=== PATIENT | female | born 1970 | race Caucasian/White ===

== ENCOUNTER 2021-01-21 11:55 | Inpatient (IN) | payer MEDICARE, MEDICAID, SELFPAY ==
[2021-01-21] VITALS (10 sets, daily range): BP systolic 91–151; BP diastolic 76–98; PULSE 90–133; RESP 16–30; O2SAT 97–99; BMI 16.2
--- NOTE | 2021-01-21 11:57 | ECG_ITS ---
[facility] Test Date: 2021-01-21 Pat Name: Tiny Jacome Department: Room: 150 Gender: Female Low Voltage Electrician: : 1970 Requested By: Rizwan Hook Order Number: [id number] Eyal MD: Yordan Zelaya M.D. Measurements Intervals [place] Rate: 93 P: 76 MA: 132 QRS: 66 QRSD: 80 T: 62 QT: 341 QTc: 425 Interpretive Statements SINUS RHYTHM WITH SINUS ARRHYTHMIA POSSIBLE LEFT ATRIAL ENLARGEMENT [-0.1mV P-WAVE IN V1/V2] SEPTAL MYOCARDIAL INFARCTION , OF INDETERMINATE AGE [40+ ms Q WAVE IN V1/V2] No previous ECG available for comparison Electronically Signed On 01-22-2021 7:35:17 SETUP OPERATOR by Yordan Zelaya M.D. [id number]
--- NOTE | 2021-01-21 11:57 | W.ED.PSYCHS ---
HPI - Psych General: Chief Complaint: Psychiatric Symptoms Stated Complaint: SI/ OVERDOSE Time Seen by Provider: 01/21/21 11:56 History of Present Illness: HPI Narrative: Ms. Jacome is a 50-year-old lady with various psychiatric diagnoses and substance abuse problems who presents the emergency department due to suicidal ideation with suicide attempt. She reports longstanding history of amphetamine and opioid abuse and was previously on Suboxone. She reports that her stole her Suboxone and she has been out of her psych meds for approximately 3 months. She last used heroin and methamphetamine on Sunday. Patient is currently having difficulty staying still. She otherwise denies significant changes to health. Intensity of symptoms is moderate to severe. She took 300 mg tablets of Seroquel. No other specific exacerbating or alleviating factors identified. Review of Systems General: Reports: 10 or more systems reviewed and unremarkable except in HPI and below Physical Exam Narrative: EXAM NARRATIVE: GENERAL/CONSTITUTIONAL -chronically ill-appearing. Patient has difficulty staying still Eyes - PERRL, no conjunctival injection ENMT - Atraumatic external nose and ears. Moist mucous membranes NECK - supple. trachea midline CARDIOVASCULAR -tachycardic rate and regular rhythm. Normal peripheral perfusion. RESPIRATORY - clear to auscultation bilaterally. No retractions or accessory muscle use. ABDOMEN/GI - Nontender/Nondistended. No tenderness to percussion or evidence of peritonitis MSK - Extremities without obvious deformity or tenderness to palpation SKIN - Warm, Dry NEURO - alert and appropriately oriented. strength and sensation intact. Moves all extremities equally. PSYCH - anxious. Patient has difficulty being still. Appears to have symptoms of either active amphetamine intoxication or more likely withdrawal. Course Vital Signs: Vital signs: Vital Signs Temperature 98.1 F 01/30/21 22:00 Pulse Rate 75 01/30/21 22:00 Respiratory Rate 18 01/30/21 22:00 Blood Pressure 112/68 01/30/21 22:00 Pulse Oximetry 99 01/30/21 22:00 MDM - Psych MDM Narrative: Medical decision making narrative: - Patient was seen and evaluated by me at bedside - Patient placed on cardiac monitors, IV access obtained - Initial evaluation notable for exam as above - given degree of patient's symptoms I ordered a benzodiazipine - Labs notable for no acute medical reason to explain symptoms, tox positive for amphetamines. - unfortunately, throughout ED course the patient required multiple additional doses and multiple medications. She was combative, not able to verbally deescalated, and attempted to hit staff. She lacked appropriate insight and presented a danger to her self and others. - She did require restraints and was evaluated during this time serially per protocol and restraints were discontinued when clinically appropriate - Discussed case with Dr Leigh of the psychiatry service. He ended up coming to see patient prior to admission. - Patient to be admitted to psychiatric unit. Medical Records: Attestation: I reviewed the patient's medical records. Lab Data: Attestation: I reviewed the patient's lab results. Labs: Lab Results 01/21/21 01/21/21 01/21/21 12:24 12:24 12:24 WBC 4.6 10^3/uL 10^3/ uL (4.0-10.0) RBC 3.52 10^6/uL L 10 ^6/uL (4.1-5.3) Hgb 10.6 g/dL L g/dL (11.5-15.3) Hct 33.2 % L % (37.0-47.0) MCV 94.3 fl fl (81-99) MCH 30.1 pg pg (28.0-34.0) MCHC 31.9 g/dL g/dL (30.0-36.0) RDW 12.7 % % (12.1-15.1) Plt Count 583 10^3/cmm H 10 ^3/cmm (130-400) MPV 8.6 fL fL (7.4-10.4) Neut % (Auto) 62.5 % % Lymph % (Auto) 25.0 % % [place] % (Auto) 5.2 % % Eos % (Auto) 5.6 % % Baso % (Auto) 1.3 % % Neut # (Auto) 2.90 10^3/uL 10^3 /uL (1.8-7.7) Lymph # (Auto) 1.2 10^3/uL 10^3/ uL (0.8-4.8) [place] # (Auto) 0.2 10^3/uL 10^3/ uL (0.2-0.9) Eos # (Auto) 0.3 10^3/uL 10^3/ uL (0.0-0.8) Baso # (Auto) 0.1 10^3/uL 10^3/ uL (0.0-0.1) Nucleated RBC % (a uto) 0 % % Nucleated RBCs # 0.0 /100WBC /100W BC Sodium 140 mmol/L mmol/L (136-145) Potassium 4.0 mmol/L mmol/L (3.5-5.1) Chloride 105 mmol/L mmol/L (98-107) Carbon Dioxide 25 mmol/L mmol/L (22-29) Anion Gap 14.0 (5-19) BUN 8 mg/dL mg/dL (6-20) Creatinine 0.6 mg/dL mg/dL (0.5-0.9) GFR Calculation 105.8 mL/min mL/m in (90-130) Glucose 131 mg/dL H mg/dL (65-115) Calculated Osmolal ity 290 mOsm/kg mOsm/ kg (285-295) Calcium 8.0 mg/dL L mg/dL (8.5-10.5) Total Bilirubin 0.2 mg/dL mg/dL (0.15-1.2) AST 12 U/L U/L (0-32) ALT 8 U/L U/L (0-33) Alkaline Phosphata se 104 IU/L IU/L (35-105) Creatine Kinase Total Protein 7.4 g/dL g/dL (6.6-8.7) Albumin 3.2 g/dL L g/dL (3.5-5.2) Globulin 4.2 g/dL g/dL (1.3-4.6) TSH 0.30 uIU/mL uIU/m L (0.27-4.20) HCG, Qual Negative (Negative) Salicylates < 0.3 mg/dL L mg/ dL (3-10) Urine Opiates Scre en Acetaminophen < 5.0 ug/mL L ug/ mL (10-30) Ur Barbiturates Sc reen Ur Phencyclidine S crn Ur Amphetamines Sc reen U Benzodiazepines Scrn Urine Cocaine Scre en U Marijuana (THC) Screen Ethyl Alcohol < 10 mg/dL mg/dL (0-10) 01/21/21 01/21/21 12:24 12:24 WBC RBC Hgb Hct MCV MCH MCHC RDW Plt Count MPV Neut % (Auto) Lymph % (Auto) [place] % (Auto) Eos % (Auto) Baso % (Auto) Neut # (Auto) Lymph # (Auto) [place] # (Auto) Eos # (Auto) Baso # (Auto) Nucleated RBC % (a uto) Nucleated RBCs # Sodium Potassium Chloride Carbon Dioxide Anion Gap BUN Creatinine GFR Calculation Glucose Calculated Osmolal ity Calcium Total Bilirubin AST ALT Alkaline Phosphata se Creatine Kinase 43 U/L U/L (26-192) Total Protein Albumin Globulin TSH HCG, Qual Salicylates Urine Opiates Scre en Negative ng/mL ng /mL (Negative) Acetaminophen Ur Barbiturates Sc reen Negative ng/mL ng /mL (Negative) Ur Phencyclidine S crn Negative ng/mL ng /mL (Negative) Ur Amphetamines Sc reen Positive ng/mL H ng/mL (Negative) U Benzodiazepines Scrn Negative ng/mL ng /mL (Negative) Urine Cocaine Scre en Negative ng/mL ng /mL (Negative) U Marijuana (THC) Screen Negative ng/mL ng /mL (Negative) Ethyl Alcohol EKG Data^: EKG 1: Attestation: I personally reviewed and interpreted this EKG as follows: EKG interpretation date: 01/21/21 EKG interpretation time: 21:03 Interpretation: Twelve-lead EKG shows a regular rhythm at a rate of 93. [place] interval 132. QRS duration 80. QTc 425. normal [place]. . Interpretation: sinus Rhythm. . Discharge Plan Discharge Patient Disposition: Admitted As Inpatient Admit Provider: Deangelo Leigh Clinical Impression: Suicidal ideation Condition: Stable Coding Level of Care Code ED Business Systems Lead for Sandra Xavier
[2021-01-21] MEDS: LORazepam 2 mg/mL INJ 1 mL 1 MG IVP ×2 (12:33→13:42)
[2021-01-21] MEDS: diphenhydrAMINE 50 mg/mL SDV 1mL 25 MG IVP (12:33)
[2021-01-21 12:39] LABS: Basophils # 0.1 10^3/uL (0.0-0.1); Basophils % 1.3 %; Eosinophils # 0.3 10^3/uL (0.0-0.8); Eosinophils % 5.6 %; Hematocrit 33.2 % (37.0-47.0); Hemoglobin 10.6 g/dL (11.5-15.3); Lymphocytes # 1.2 10^3/uL (0.8-4.8); Mean Corpuscular HGB Conc 31.9 g/dL (30.0-36.0); Mean Corpuscular Hemoglobin 30.1 pg (28.0-34.0); Mean Corpuscular Volume 94.3 fl (81-99); Mean Platelet Volume 8.6 fL (7.4-10.4); Monocytes # 0.2 10^3/uL (0.2-0.9); Monocytes % 5.2 %; Neutrophils % 62.5 %; Nucleated Red Blood Cells % 0 %; Platelet Count 583 10^3/cmm (130-400); Red Blood Count 3.52 10^6/uL (4.1-5.3); Red Cell Distribution Width 12.7 % (12.1-15.1); White Blood Count 4.6 10^3/uL (4.0-10.0)
[2021-01-21 12:43] LABS: HCG Qualitative Urine. Negative (Negative)
[2021-01-21 13:16] LABS: Alanine Aminotransferase 8 U/L (0-33); Albumin Level 3.2 g/dL (3.5-5.2); Alkaline Phosphatase 104 IU/L (35-105); Aspartate Amino Transferase 12 U/L (0-32); Blood Urea Nitrogen 8 mg/dL (6-20); Carbon Dioxide 25 mmol/L (22-29); Chloride 105 mmol/L (98-107); Creatinine Clr Calc Pharmacy 78.7171; Globulin 4.2 g/dL (1.3-4.6); Glomerular Filtration Rate 105.8 mL/min (90-130); Glucose 131 mg/dL (65-115); Osmolality Calculated 290 mOsm/kg (285-295); Sodium 140 mmol/L (136-145); Total Bilirubin 0.2 mg/dL (0.15-1.2); Total Protein 7.4 g/dL (6.6-8.7)
[2021-01-21 13:19] LABS: Acetaminophen < 5.0 ug/mL (10-30); Alcohol Level < 10 mg/dL (0-10); Salicylate < 0.3 mg/dL (3-10)
[2021-01-21 13:32] LABS: Amphetamines Screen Urine Positive (Negative); Barbiturates Screen Urine Negative (Negative); Benzodiazepines Screen Urine Negative (Negative); Cocaine Screen Urine Negative (Negative); Opiate Screen Urine Negative (Negative); PCP Screen Urine Negative (Negative); THC Screen Urine Negative (Negative)
[2021-01-21] MEDS: sodium chloride 0.9% 1,000 ML 999 ML IV (13:42)
[2021-01-21] MEDS: cloNIDine 0.1 mg Tablet PO (13:42)
[2021-01-21] MEDS: midazolam 1 mg/mL INJ 2 mL 2 MG IVP (14:44)
[2021-01-21] MEDS: OLANZapine 10 mg VIAL 5 MG IM (15:02)
[2021-01-21] MEDS: midazolam 1 mg/mL INJ 2 mL 5 MG IVP (15:32)
--- NOTE | 2021-01-21 17:54 | PC.NURSE ---
AT 1627 PT PLACED IN SOFT RESTRAINTS D/T CONTINUOUS ACTIVITY THAT POSES HARM TO SELF AND STAFF
[2021-01-21] MEDS: ziprasidone 20 mg/mL SDV IM (18:18)
[2021-01-21] MEDS: LORazepam 2 mg/mL INJ 1 mL IVP (18:18)
[2021-01-21 21:33] LABS: Creatine Phosphokinase 43 U/L (26-192)
--- NOTE | 2021-01-22 00:40 | PC.ADMIT ---
[address] Admission Note: The patient,Tiny Jacome,50 y/o, was given written information regarding hospital policies, unit procedures and contact persons. Patient's smoking status: . Vital Signs - 8 hr 01/21/21 17:30 01/21/21 17:45 01/21/21 18:00 Pulse Rate 95 97 100 Respiratory Rate 16 Blood Pressure Pulse Oximetry 98 98 99 01/21/21 18:15 01/21/21 19:18 01/21/21 19:56 Pulse Rate 90 112 H 115 H Respiratory Rate Blood Pressure 151/90 144/98 91/76 Pulse Oximetry 98 98 97 01/21/21 21:50 Pulse Rate 115 H Respiratory Rate Blood Pressure 91/76 Pulse Oximetry 97 Patient arrived from ER via w/c with staff. Patient slumped in chair and painfully responsive. Patient placed in bed and changed into cotton scrubs. Skin assessment performed, unremarkable other than random bruising to arms, legs and left hip area. Patient non-verbal and was asleep just after scrubs were changed. Unable to perform complete assessment due to mental status. Will attempt after patient is alert. Will continue to monitor and follow plan of care.
--- NOTE | 2021-01-22 01:57 | PC.NURSE ---
Pt woke up and came out of her room to the Nurse's desk. Patient asked where she was at. SANTOSH Connelly explained to pt where she was and why. Patient then returned to bed. Will continue to monitor.
[2021-01-22] MEDS: CLONazepam 0.5 mg Tablet PO (04:38)
[2021-01-22 06:00] VITALS: RESP 17
[2021-01-22] MEDS: OLANZapine 5 mg ODT PO ×3 (08:58→20:48)
[2021-01-22] MEDS: hyDROXYzine 25 mg Capsule 50 MG PO ×2 (08:58→13:21)
--- NOTE | 2021-01-22 09:29 | P.NPUHP_ITS ---
Providers/Chief Complaint Admitting Physician: Deangelo Leigh MD Chief Complaint: SI/ OVERDOSE HPI NPU History of Present Illness Tiny Jacome is a 50 year old female who presented to the emergency [facility] with the following report: Chief Complaint: Psychiatric Symptoms Stated Complaint: SI/ OVERDOSE Time Seen by Provider: 01/21/21 11:56 History of Present Illness: HPI Narrative: Ms. Jacome is a 50-year-old lady with various psychiatric diagnoses and substance abuse problems who presents the emergency department due to suicidal ideation with suicide attempt. She reports longstanding history of amphetamine and opioid abuse and was previously on Suboxone. She reports that her stole her Suboxone and she has been out of her psych meds for approximately 3 months. She last used heroin and methamphetamine on Sunday. Patient is currently having difficulty staying still. She otherwise denies significant changes to health. Intensity of symptoms is moderate to severe. She took 300 mg tablets of Seroquel. No other specific exacerbating or alleviating factors identified. She was admitted to the neuropsychiatric unit for definitive treatment of those issues. She presents as a fairly poor historian given the significant amount of medication she was given in the emergency room to likely counteract the significant methamphetamine intoxication. She presents now fairly lethargic and having vomiting and various withdrawal symptoms possibly secondary to overall. We discussed the fact that we need to confirm her clinics plan with her Suboxone given this report that she does not have any training and that she just recently filled the prescription. We agreed that we would give her 8/2 mg of Suboxone sublingually twice daily until we speak to them on Sunday and then if they are going to give her medication when she discharges will increase back to 3 times a day. If they will not we will plan for a taper as we would not discharge her with any medication. She was unable to really participate in getting historical data. She did endorse significant addiction history cigarettes, marijuana at times, amphetamines, opiates etc. She does report past inpatient psychiatric stays and some history of drug and alcohol treatment but could not give any clarity to these issues. She does reportedly have a and referred to him multiple of them because of him during the day. Other psychosocial elements are unclear but she does reportedly have connections in the [place] area. We agreed that on Sunday we would work to get collateral information. She was very upset because she wanted her Klonopin restarted but per records thus far we can only did not find that she had content filled in August. We identified that we would have as needed medications available for some of her withdrawal symptoms. Her UDS was only positive for amphetamines would not expect to be positive for Suboxone given it is not part of the panel. Meds NPU Home Medications Medication Instructions Recorded Confirmed Last Taken Type buprenorphine-naloxone [Suboxone] 1 film BUCCAL TID 01/21/21 01/21/21 Unknown History clonazepam [Klonopin] 0.5 mg PO BID PRN MDD see pharmacy 01/21/21 01/21/21 Unknown History comment naloxone [Narcan] 4 mg INTRANASAL Q2M PRN 01/21/21 01/21/21 Unknown History quetiapine [Seroquel] 100 mg PO BEDTIME 01/21/21 01/21/21 Unknown History Allergies Allergy/AdvReac Type Severity Reaction Status Date / Time haloperidol [From Haldol] Allergy Unknown Unknown Verified 01/21/21 13:15 metoclopramide [From Reglan] Allergy Unknown Unknown Verified 01/21/21 13:15 prochlorperazine Allergy Unknown Unknown Verified 01/21/21 13:15 [From Compazine] Mental Status Exam MSE Comments: This is a thin/cachectic looking white female in hospital scrubs, disheveled with limited eye contact. Significant psychomotor retardation followed by some agitation. Mostly uncooperative with exam in mild to moderate distress. Speech was limited but at times increased rate and volume. Mood described as anxious affect congruent. Thought process organized. Thought content: Patient denied suicidal or homicidal ideation, there are no delusions reported noted, she endorsed auditory and visual hallucinations. Concentration were limited and memory was unreliable but none were formally tested. She is alert and oriented x3. Insight and judgment impaired, impulse control impaired. Vitals/I&O/Wt Last Vital Signs Pulse 115 H 01/21/21 23: Resp 17 01/22/21 06:00 BP 91/76 01/21/21 23:21 Pulse Ox 97 01/21/21 23:21 01/21/21 01/22/21 01/22/21 22:59 06:59 14:59 Intake Total 1000 / 1000 Balance 1000 / 1000 Weight last 48 hrs Weight 44.452 kg Data NPU : 01/21/21 12:24 01/21/21 12:24 A&P Assessment and plan (1) Suicidal ideation: Status: Acute (2) Methamphetamine dependence: Status: Acute (3) Opiate withdrawal: Status: Acute (4) Opiate dependence: Status: Acute (5) Anxiety: Status: Acute (6) Psychosis: Status: Acute Additional A&P Information This is a 50-year-old white female with a long history of addiction, anxiety and psychosis who presents in active addiction with intoxication and withdrawal with reports of suicidality. 1. Continue current medication. We will give 8/2 mg of Suboxone while awaiting communication with outpatient clinic. 2. Continue every 15 minute checks for safety. 3. Encourage individual, group and milieu therapies. 4. Encourage sober living treatment after discharge at the highest level of care to which he is willing to commit. Involuntary Hold Information 96 Hour Hold: 96 Hour Involuntary Admission: Yes 96 Hour Hold Ending Date: 01/27/21 96 Hour Hold Ending Time: 16:30 Attestations NPU Medical Necessity Statement*: Inpatient hospitalization is medically necessary and the clinically appropriate intervention at this time. We will monitor medication to make changes as indicated. Likely length of stay 3 to 5 days. Coding Level of Care Code Acute Medical Asst for Sandra Fwd Diagnoses Suicidal ideation R45.851 Methamphetamine dependence F15.20 Opiate withdrawal F11.23 Opiate dependence F11.20 Anxiety F41.9 Psychosis F29
--- NOTE | 2021-01-22 13:19 | PC.NURSE ---
AT 12:45 pt was given PRN Zydis for uncontrollable agitation and anxiety. Pt took medication without complication.
[2021-01-22 14:00] VITALS: BP 143/93; PULSE 84; RESP 16; TEMP 37.1; O2SAT 99
[2021-01-22] MEDS: buprenorphine-naloxone 4-1 mg Film 2 EACH SUBLINGUAL ×2 (15:02→18:19)
[2021-01-22 20:43] VITALS: BP 114/70; PULSE 102; RESP 15; TEMP 37.1; O2SAT 97
[2021-01-22] MEDS: trazodone 50 mg Tablet PO (20:48)
[2021-01-22] MEDS: acetaminophen 325 mg Tablet 650 MG PO (20:48)
[2021-01-23] MEDS: hyDROXYzine 25 mg Capsule 50 MG PO ×3 (05:41→22:24)
[2021-01-23 06:00] VITALS: RESP 16; BMI 16.2
--- NOTE | 2021-01-23 06:02 | PC.NURSE ---
Patient yelling, and kicking mattress in room, screaming I need my meds. He doesn't know what he's doing to me. He can't cut my Subs from 4 to two. I'm withdrawing and I can't take it. I need my psych meds. I need them straightened out. I need my Benzos, my sleeping meds and my Lyrica. Asked patient if she would like a shot to help deal with her agitation and she said yes. Medicated with PRN Ativan and Benadryl.
[2021-01-23] MEDS: diphenhydrAMINE 50 mg/mL SDV 1mL IM (06:05)
[2021-01-23] MEDS: LORazepam 2 mg/mL INJ 1 mL IM (06:05)
[2021-01-23] MEDS: buprenorphine-naloxone 4-1 mg Film 2 EACH SUBLINGUAL ×2 (08:03→17:09)
[2021-01-23] MEDS: OLANZapine 5 mg ODT PO ×3 (08:03→22:24)
--- NOTE | 2021-01-23 12:38 | W.PM.NPUPNS ---
Subjective NPU Subjective: Interval history: Patient was essentially uncooperative today screaming and yelling that she be given benzodiazepines and that her Suboxone dose be increased to outpatient dose. We once again discussed our policy about dispensing Suboxone and that we need her outpatient team's acknowledgment that they will continuing the medication and giving her prescription at discharge for us to dispense inpatient. She mostly screamed all day kicking her feet demanding to be transferred to [place] Mental Status Exam MSE Comments: This is a thin/cachectic looking white female in hospital scrubs, disheveled with limited eye contact. Significant psychomotor agitation. Uncooperative with exam in extreme distress. Speech was limited but at times increased rate and volume. Mood described as anxious affect congruent. Thought process organized. Thought content: Patient denied suicidal or homicidal ideation, there are no delusions reported noted, she endorsed auditory and visual hallucinations. Concentration were limited and memory was unreliable but none were formally tested. She is alert and oriented x3. Insight and judgment impaired, impulse control impaired. Vitals/I&O/Wt Last Vital Signs Temp 98.7 F 01/22/21 20:43 Pulse 102 H 01/22/21 20:43 Resp 16 01/23/21 06:00 BP 114/70 01/22/21 20:43 Pulse Ox 97 01/22/21 20:43 Weight last 48 hrs Weight 44.452 kg Data NPU : 01/21/21 12:24 01/21/21 12:24 A&P Additional A&P Information (1) Suicidal ideation: (2) Methamphetamine dependence: (3) Opiate withdrawal: (4) Opiate dependence: (5) Anxiety: (6) Psychosis: Additional A&P Information This is a 50-year-old white female with a long history of addiction, anxiety and psychosis who presents in active addiction with intoxication and withdrawal with reports of suicidality. 1. Continue current medication. We will give 8/2 mg of Suboxone while awaiting communication with outpatient clinic. 2. Continue every 15 minute checks for safety. 3. Encourage individual, group and milieu therapies. 4. Encourage sober living treatment after discharge at the highest level of care to which he is willing to commit. Involuntary Hold Information 96 Hour Hold: 96 Hour Involuntary Admission: Yes 96 Hour Hold Ending Date: 01/27/21 96 Hour Hold Ending Time: 16:30 Attestations NPU Medical Necessity Statement*: Inpatient hospitalization is medically necessary and the clinically appropriate intervention at this time. We will monitor medication to make changes as indicated. Likely length of stay 3 to 5 days. Coding Level of Care Code Acute Combat Systems Operator for Sandra Xavier
[2021-01-23 14:00] VITALS: RESP 18
--- NOTE | 2021-01-23 14:32 | PC.NURSE ---
Pt agitated and screaming. Pt has been offered PRN medications and refused until now. Pt requesting benzos only. Pt kicking the wall and slamming her legs on her bed. Pt took 50 mg Vistaril and 5 mg Zyprexa without complication. Pt on the phone screaming that no one will help her or feed her. Pt remains agitated and unable to redirect
--- NOTE | 2021-01-23 17:38 | PC.NURSE ---
REFUSED VITALS WILL CONTINUE TO MONITOR.
[2021-01-23 20:27] VITALS: RESP 21
[2021-01-23] MEDS: trazodone 50 mg Tablet PO (22:24)
--- NOTE | 2021-01-23 23:53 | NUR.SHIFT ---
Demanding, loud, inappropriate language and actions.
[2021-01-24] MEDS: OLANZapine 5 mg ODT PO ×4 (04:24→22:23)
[2021-01-24] MEDS: hyDROXYzine 25 mg Capsule 50 MG PO ×2 (04:24→17:25)
--- NOTE | 2021-01-24 04:24 | PC.NURSE ---
pt yelling from bed. Vistaril 50mg po and zyprexa 5mg SL given for anxiety.
[2021-01-24 06:00] VITALS: RESP 15
[2021-01-24] MEDS: buprenorphine-naloxone 4-1 mg Film 2 EACH SUBLINGUAL ×2 (08:06→17:25)
--- NOTE | 2021-01-24 09:32 | PC.OT ---
OT EVALUATION ORDERS RECEIVED. HOLD PER NURSING SECONDARY TO AGGRESSION.
[2021-01-24] MEDS: OLANZapine 10 mg VIAL IM (10:35)
--- NOTE | 2021-01-24 10:46 | PC.NURSE ---
At 10:30, Pt began screaming and hitting amado. Pt began threatening peers and staff. Pt agreed to to take a shot of medication for anxiety and agitation. Zyprexa 10mg IM administered in left glut without complication.
--- NOTE | 2021-01-24 12:52 | NPU.GN ---
[facility] Group Topic:Gaurav Sawyer / Discussion General Mood of Group: Lea did not attend or participate in group she wanted to sleep. She was also yelling alot today. Tiny is not mentally or emotionally stable at this time.
[2021-01-24 14:00] VITALS: BP 132/86; PULSE 117; RESP 17; TEMP 37.1; O2SAT 96
--- NOTE | 2021-01-24 15:52 | W.PM.NPUPNS ---
Subjective NPU Subjective: Interval history: Patient presents today actually engaging in a conversation after she received a as needed of Zyprexa IM today. She continued to discuss the things she is in screaming about the past 2 days including possible transfer to [facility] in [place], increasing her Suboxone to 8/2 mg 3 times daily and needing something for her anxiety and her voices. We discussed the treatment plan and are continue attempts to reach her Suboxone provider and then will continue to address these issues as more information is available. Mental Status Exam MSE Comments: This is a thin/cachectic looking white female in hospital scrubs, disheveled multicolored hair with improved eye contact. Significant psychomotor agitation. More cooperative with exam in less distress after the as needed medication. Speech was more spontaneous with less times of increased rate and volume. Mood described as anxious, affect congruent. Thought process organized. Thought content: Patient denied suicidal or homicidal ideation, there are no delusions reported noted, she endorsed auditory and visual hallucinations. Concentration were limited and memory was unreliable but none were formally tested. She is alert and oriented x3. Insight and judgment impaired, impulse control impaired. Vitals/I&O/Wt Last Vital Signs Temp 98.7 F 01/24/21 14:00 Pulse 117 H 01/24/21 14:00 Resp 17 01/24/21 14:00 BP 132/86 01/24/21 14:00 Pulse Ox 96 01/24/21 14:00 Data NPU : 01/21/21 12:24 01/21/21 12:24 A&P Additional A&P Information (1) Suicidal ideation: (2) Methamphetamine dependence: (3) Opiate withdrawal: (4) Opiate dependence: (5) Anxiety: (6) Psychosis: Additional A&P Information This is a 50-year-old white female with a long history of addiction, anxiety and psychosis who presents in active addiction with intoxication and withdrawal with reports of suicidality. 1. Continue current medication. We will give 8/2 mg of Suboxone while awaiting communication with outpatient clinic. 2. Continue every 15 minute checks for safety. 3. Encourage individual, group and milieu therapies. 4. Encourage sober living treatment after discharge at the highest level of care to which he is willing to commit. Involuntary Hold Information 96 Hour Hold: 96 Hour Involuntary Admission: Yes 96 Hour Hold Ending Date: 01/27/21 96 Hour Hold Ending Time: 16:30 Attestations NPU Medical Necessity Statement*: Inpatient hospitalization is medically necessary and the clinically appropriate intervention at this time. We will monitor medication to make changes as indicated. Likely length of stay 2-4 days. Coding Level of Care Code Acute Terminal System Operator for Sandra Xavier
[2021-01-24] MEDS: quetiapine 25 mg Tablet 50 MG PO (16:27)
[2021-01-24] MEDS: nicotine 2 mg Gum BUCCAL ×2 (17:04→20:21)
[2021-01-24 21:35] VITALS: RESP 15
[2021-01-24] MEDS: ziprasidone hcl 20 mg Capsule PO (22:23)
--- NOTE | 2021-01-24 22:25 | PC.NURSE ---
pt requesting sleep and anxiety med. trazodone 50mg po for sleep and zyprexa zydis 5mg SL given for anxiety.
--- NOTE | 2021-01-24 23:00 | PC.NURSE ---
pt resting quietly with both eyes closed.
[2021-01-25] MEDS: hyDROXYzine 25 mg Capsule 50 MG PO ×3 (05:09→16:52)
--- NOTE | 2021-01-25 05:11 | PC.NURSE ---
pt requested anxiety med, Vistaril 50mg po given.
[2021-01-25] MEDS: nicotine 2 mg Gum BUCCAL ×4 (06:10→18:41)
[2021-01-25 06:23] VITALS: BP 95/60; PULSE 115; RESP 16; O2SAT 99
--- NOTE | 2021-01-25 07:59 | W.PM.NPUPNS ---
Subjective NPU Subjective: Interval history: Patient resents today continuing to be more verbal regularly and occasionally being seen up ambulating. She continues to focus on the medications specifically requesting that the Suboxone will be increased back to 24 mg daily in divided doses. We were able to get a hold of her Suboxone program which does appear to be planning on maintaining her in the program however that effectively actually described her that we get a sense of whether the 3 times daily 8/2 mg sublingually we continued or not. She continues to request benzodiazepines which we have denied. We agreed we will have nutrition come by and work with her to make recommendations to improve her nutritional status. Mental Status Exam MSE Comments: This is a thin/cachectic looking white female in hospital scrubs, disheveled multicolored hair with improved eye contact. Significant psychomotor agitation which is improving slightly. More cooperative with exam in less constant distress. Speech was more spontaneous with less times of increased rate and volume. Mood described as anxious, affect congruent. Thought process organized. Thought content: Patient denied suicidal or homicidal ideation, there are no delusions reported or noted, she endorsed auditory and visual hallucinations. Concentration were limited and memory was unreliable but none were formally tested. She is alert and oriented x3. Insight and judgment impaired, impulse control impaired. Vitals/I&O/Wt Last Vital Signs Temp 98.7 F 01/24/21 14:00 Pulse 115 H 01/25/21 06:23 Resp 16 01/25/21 06:23 BP 95/60 01/25/21 06:23 Pulse Ox 99 01/25/21 06:23 Data NPU : 01/21/21 12:24 01/21/21 12:24 A&P Additional A&P Information (1) Suicidal ideation: (2) Methamphetamine dependence: (3) Opiate withdrawal: (4) Opiate dependence: (5) Anxiety: (6) Psychosis: Additional A&P Information This is a 50-year-old white female with a long history of addiction, anxiety and psychosis who presents in active addiction with intoxication and withdrawal with reports of suicidality. 1. Continue current medication. We will give 8/2 mg of Suboxone while awaiting communication with outpatient clinic. 2. Continue every 15 minute checks for safety. 3. Encourage individual, group and milieu therapies. 4. Encourage sober living treatment after discharge at the highest level of care to which he is willing to commit. 5. Appreciate coating machine operator helper/dietitian consult will await recommendations and follow as indicated. Involuntary Hold Information 96 Hour Hold: 96 Hour Involuntary Admission: Yes 96 Hour Hold Ending Date: 01/27/21 96 Hour Hold Ending Time: 16:30 Attestations NPU Medical Necessity Statement*: Inpatient hospitalization is medically necessary and the clinically appropriate intervention at this time. We will monitor medication to make changes as indicated. Likely length of stay 1-3 days. Coding Level of Care Code Acute Nursing Care Partner for Sandra Xavier
[2021-01-25] MEDS: buprenorphine-naloxone 4-1 mg Film 2 EACH SUBLINGUAL ×2 (08:34→17:32)
[2021-01-25] MEDS: OLANZapine 5 mg ODT PO ×2 (10:39→20:19)
[2021-01-25] MEDS: OLANZapine 10 mg VIAL IM (12:49)
--- NOTE | 2021-01-25 12:50 | PC.NURSE ---
Pt agitated and screaming. Pt laying in bed twisting and turning. Pt states she feels wrong. Pt agreed to take an injection of zyprexa for agitation. Zyprexa 10mg IM given in right glut without complication.
--- NOTE | 2021-01-25 13:14 | NPU.GN ---
[facility] Topic: Gaurav Sawyer General Mood of Group: Júnior did not attend group today As she was sleeping.
[2021-01-25] MEDS: quetiapine 25 mg Tablet 50 MG PO ×2 (13:40→21:47)
[2021-01-25 14:00] VITALS: RESP 18
[2021-01-25 19:49] VITALS: BP 130/79; PULSE 113; RESP 18; O2SAT 95
--- NOTE | 2021-01-25 20:44 | PC.NURSE ---
pt requested anxiety med, zyprexa zydis 5mg SL given.
[2021-01-26 06:00] VITALS: BP 118/67; PULSE 62; RESP 17; O2SAT 98
[2021-01-26] MEDS: nicotine 2 mg Gum BUCCAL ×4 (08:07→17:10)
[2021-01-26] MEDS: buprenorphine-naloxone 4-1 mg Film 2 EACH SUBLINGUAL ×2 (08:37→17:10)
[2021-01-26] MEDS: OLANZapine 5 mg ODT PO ×2 (10:49→16:33)
[2021-01-26] MEDS: hyDROXYzine 25 mg Capsule 50 MG PO ×2 (10:49→17:31)
--- NOTE | 2021-01-26 10:51 | PC.NURSE ---
prn Administered 5mg Zyprexa Zydis, 50mg Vistaril, 2mg Ryan gum, pt c/o of anxiety. Will continue to monitor.
--- NOTE | 2021-01-26 11:15 | NPU.GN ---
[facility] Topic: Checkers General Mood of Group: Tiny did not attend group today she was sleeping.
[2021-01-26] MEDS: acetaminophen 325 mg Tablet 650 MG PO (13:20)
[2021-01-26] MEDS: ziprasidone hcl 20 mg Capsule PO (13:20)
[2021-01-26] MEDS: quetiapine 25 mg Tablet 50 MG PO ×2 (13:22→20:30)
--- NOTE | 2021-01-26 13:58 | P.NPUPN_ITS ---
Subjective NPU Subjective: Interval history: Patient presents today with a paresthesias of right and conversational. We continue to explain awaiting her Suboxone team's authorization through increase her to 8/2 mg 3 times a day. With an understanding that if they do not choose to treat her mood after discontinuing medication with a taper. We also discussed her being on a 96-hour hold that en ds tomorrow and she agreed that she would sign into the hospital. Otherwise she continues to report working with the treatment team for appropriate follow-up options. Continue to focus on medications as primary solutions and we continue to discuss the critical role that her discontinuing her methamphetamine and other drug use is in her feeling better/less anxious. Mental Status Exam MSE Comments: This is a thin/cachectic looking white female in hospital scrubs, disheveled multicolored hair with improved eye contact. Significant psychomotor agitation which is improving slightly. More cooperative with exam in less constant distress. Speech was more spontaneous with less times of increased rate and volume. Mood described as anxious, affect congruent. Thought process organized. Thought content: Patient denied suicidal or homicidal ideation, there are no delusions reported or noted, she endorsed auditory and visual hallucinations. Concentration were limited and memory was unreliable but none were formally tested. She is alert and oriented x3. Insight and judgment limited, impulse control limited. Vitals/I&O/Wt Last Vital Signs Temp 98.7 F 01/24/21 14:00 Pulse 62 01/26/21 06:00 Resp 17 01/26/21 06:00 BP 118/67 01/26/21 06:00 Pulse Ox 98 01/26/21 06:00 Data NPU : 01/21/21 12:24 01/21/21 12:24 A&P Additional A&P Information (1) Suicidal ideation: (2) Methamphetamine dependence: (3) Opiate withdrawal: (4) Opiate dependence: (5) Anxiety: (6) Psychosis: Additional A&P Information This is a 50-year-old white female with a long history of addiction, anxiety and psychosis who presents in active addiction with intoxication and withdrawal with reports of suicidality. 1. Continue current medication. We will give 8/2 mg of Suboxone while awaiting communication with outpatient clinic. 2. Continue every 15 minute checks for safety. 3. Encourage individual, group and milieu therapies. 4. Encourage sober living treatment after discharge at the highest level of care to which he is willing to commit. 5. Appreciate foreign trade teacher/dietitian consult will await recommendations and follow as indicated. 6. Patient should be offered paperwork for voluntary treatment tomorrow. Involuntary Hold Information 96 Hour Hold: 96 Hour Involuntary Admission: Yes 96 Hour Hold Ending Date: 01/27/21 96 Hour Hold Ending Time: 16:30 Attestations NPU Medical Necessity Statement*: Inpatient hospitalization is medically necessary and the clinically appropriate intervention at this time. We will monitor medication to make changes as indicated. Likely length of stay 1-3 days. Coding Level of Care Code Acute Economic Development Specialist for Sandra Xavier
[2021-01-26 14:00] VITALS: BP 129/84; PULSE 108; RESP 16; O2SAT 99
[2021-01-26 19:37] VITALS: BP 129/84; PULSE 108; RESP 16; O2SAT 99
[2021-01-27] MEDS: OLANZapine 5 mg ODT PO ×3 (00:54→13:34)
[2021-01-27] MEDS: hyDROXYzine 25 mg Capsule 50 MG PO ×3 (00:55→11:37)
[2021-01-27 06:00] VITALS: BP 130/78; PULSE 84; RESP 17; O2SAT 98
[2021-01-27] MEDS: nicotine 2 mg Gum BUCCAL ×5 (06:41→19:18)
[2021-01-27] MEDS: ondansetron 4 MG Tablet PO (08:33)
[2021-01-27] MEDS: buprenorphine-naloxone 4-1 mg Film 2 EACH SUBLINGUAL ×3 (08:33→20:30)
[2021-01-27] MEDS: ziprasidone hcl 20 mg Capsule PO (08:33)
[2021-01-27] MEDS: quetiapine 25 mg Tablet 50 MG PO ×2 (11:37→15:45)
[2021-01-27 13:31] VITALS: BP 109/76; PULSE 102; PULSE 98; RESP 17; TEMP 36.3; O2SAT 98
--- NOTE | 2021-01-27 13:31 | ECG_ITS ---
[facility] Test Date: 2021-01-27 Pat Name: Tiny Jacome Department: Room: 150 Gender: Female Customs Examiner: : 1970 Requested By: Colt Colvin Order Number: [id number] Eyal MD: MAGY BOYD Measurements Intervals [place] Rate: 98 P: 82 WV: 138 QRS: 74 QRSD: 81 T: 72 QT: 340 QTc: 434 Interpretive Statements SINUS RHYTHM MODERATE VOLTAGE CRITERIA FOR LVH, CONSIDER NORMAL VARIANT [MEETS CRITERIA IN ONE OF: R(aVL), S(V1), R(V5), R(V5/V6)+S(V1)] Compared to ECG 01/21/2021 20:56:18 Sinus arrhythmia no longer present Myocardial infarct finding no longer present Electronically Signed On 01-27-2021 19:56:06 SOCIAL RESEARCH ASSISTANT by MAGY BOYD [id number]
[2021-01-27] MEDS: acetaminophen 325 mg Tablet 650 MG PO (13:34)
[2021-01-27 14:30] LABS: Troponin T (5th) Once 6 ng/L (0-10)
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
[2021-01-27 20:26] VITALS: RESP 15
[2021-01-27] MEDS: quetiapine 100 mg Tablet 200 MG PO (20:31)
[2021-01-27] MEDS: quetiapine 300 mg Tablet PO (20:31)
[2021-01-28 06:00] VITALS: BP 112/78; PULSE 68; RESP 15; O2SAT 96
[2021-01-28] MEDS: buprenorphine-naloxone 4-1 mg Film 2 EACH SUBLINGUAL ×3 (06:55→20:33)
[2021-01-28] MEDS: quetiapine 25 mg Tablet 50 MG PO ×2 (07:00→13:37)
[2021-01-28] MEDS: nicotine 2 mg Gum BUCCAL ×3 (09:24→20:31)
[2021-01-28] MEDS: acetaminophen 325 mg Tablet 650 MG PO ×2 (09:24→20:31)
--- NOTE | 2021-01-28 10:33 | P.NPUPN_ITS ---
Subjective NPU Subjective: Interval history: She inadvertently received Seroquel 500 mg last night. She said that it still took her 3 hours to go to sleep and she woke up every 45 minutes. Her restless leg syndrome comes and goes. It has been bad lately. That is part of the reason that she has difficulty going to sleep. She asked for some Requip twice a day and some Restoril at bedtime to help with sleep better. She agreed to try clonazepam 1 mg twice a day. She has been on that before and that worked well for her restless leg syndrome. Her anxiety continues to be very high. She says that increasing the Suboxone to 3 times a day has been very helpful. Mental Status Exam MSE Comments: This is a thin/cachectic looking white female in hospital scrubs, disheveled multicolored hair with good eye contact. Significant psychomotor agitation. cooperative with exam in moderate distress. Speech was more spontaneous with less times of increased rate and volume. Mood described as anxious, affect congruent. Thought process organized. Thought content: Patient denied suicidal or homicidal ideation, there are no delusions reported or noted, she endorsed auditory and visual hallucinations. Concentration were limited and memory was unreliable but none were formally tested. She is alert and oriented x3. Insight and judgment limited, impulse control limited. Cognition: Patient Appearance: Disheveled/Poor Hygiene Level of Consciousness: Awake and Alert Patient Cognition Impaired: No Ability to Follow Directions: Poor Patient Orientation (long list): Person, Place, Time, Name, Age, Birthday, Day of Month, Day of Week and Year Comprehension Ability: Unable to Comprehend Hallucination Type: None Thought Process: Circumstantial and Disorganized Affect: Affect Description: Appropriate Behavior: Patient Behavior: Appropriate Speech Pattern: Appropriate Vitals/I&O/Wt Last Vital Signs Temp 97.4 F L 01/27/21 13:31 Pulse 68 01/28/21 06:00 Resp 15 01/28/21 06:00 BP 112/78 01/28/21 06:00 Pulse Ox 96 01/28/21 06:00 Data NPU : 01/21/21 12:24 01/21/21 12:24 A&P Assessment and plan (1) Suicidal ideation: Status: Acute (2) Methamphetamine dependence: Status: Acute (3) Opiate withdrawal: Status: Acute (4) Opiate dependence: Status: Acute (5) Anxiety: Status: Acute (6) Psychosis: Status: Acute Additional A&P Information (1) Suicidal ideation: (2) Methamphetamine dependence: (3) Opiate withdrawal: (4) Opiate dependence: (5) Anxiety: (6) Psychosis: Additional A&P Information This is a 50-year-old white female with a long history of addiction, anxiety and psychosis who presents in active addiction with intoxication and withdrawal with reports of suicidality. 1. Continue current medication. Continue 8/2 mg of Suboxone TID. Seroquel to 50 mg twice a day and 400 mg at bedtime. Add clonazepam 1 mg twice a day. 2. Continue every 15 minute checks for safety. 3. Encourage individual, group and milieu therapies. 4. Encourage sober living treatment after discharge at the highest level of care to which he is willing to commit. 5. Appreciate utility worker woolen mill/dietitian consult will await recommendations and follow as indicated. 6. Patient should be offered paperwork for voluntary treatment tomorrow. Involuntary Hold Information 96 Hour Hold: 96 Hour Involuntary Admission: Yes 96 Hour Hold Ending Date: 01/27/21 96 Hour Hold Ending Time: 16:30 Attestations NPU Medical Necessity Statement*: Inpatient hospitalization is medically necessary and the clinically appropriate intervention at this time. We will initiate medications and make changes as indicated. Coding Level of Care Code Acute Product Examiner for Sandra Xavier Diagnoses Suicidal ideation R45.851 Methamphetamine dependence F15.20 Opiate withdrawal F11.23 Opiate dependence F11.20 Anxiety F41.9 Psychosis F29
[2021-01-28] MEDS: CLONazepam 1 mg Tablet PO ×2 (12:13→20:31)
[2021-01-28] MEDS: hyDROXYzine 25 mg Capsule 50 MG PO ×2 (13:37→20:31)
[2021-01-28 14:00] VITALS: BP 96/63; PULSE 86; RESP 16; TEMP 37.1; O2SAT 98
[2021-01-28] MEDS: quetiapine 100 mg Tablet 400 MG PO (20:31)
[2021-01-28 20:44] VITALS: RESP 15
[2021-01-29 06:00] VITALS: RESP 16
[2021-01-29] MEDS: CLONazepam 1 mg Tablet PO ×2 (08:17→20:07)
[2021-01-29] MEDS: quetiapine 25 mg Tablet 50 MG PO (08:18)
[2021-01-29] MEDS: nicotine 21 mg Patch 1 PATCH TRANSDERMA (08:18)
[2021-01-29] MEDS: buprenorphine-naloxone 4-1 mg Film 2 EACH SUBLINGUAL ×3 (08:21→20:07)
--- NOTE | 2021-01-29 09:20 | W.PM.NPUPNS ---
Subjective NPU Subjective: Interval history: She says that the clonazepam 1 mg twice a day has been very helpful for her anxiety and also her restless leg syndrome. It lasted for about 5 hours and then the restless leg syndrome comes back mildly. It still took about 2 hours to get the sleep last night and she woke up for 5 times. She said that she went to the nurses station twice to ask for a snack. She said that when she got back in bed the restless leg syndrome was there mildly but then went away and she was able to go back to sleep without much difficulty. She said that she has been on many medications. She was educated that the serotonin antidepressants were the best thing to take for anxiety and PTSD. She said that she was on high doses of Zoloft a long time ago, just when it first came out, but she does not remember the dose. She said that she would not take Prozac because either helps or it makes people crazy. She thinks she was on Lexapro and does not really remember anything about that. She does not think that the dose was increased. She agreed to give that a try. She also agreed to increase the Seroquel to 600 mg. Mental Status Exam MSE Comments: This is a thin/cachectic looking white female in hospital scrubs, disheveled multicolored hair with good eye contact. Significant psychomotor agitation. cooperative with exam in moderate distress. Speech was more spontaneous with less times of increased rate and volume. Mood described as anxious, affect congruent. Thought process organized. Thought content: Patient denied suicidal or homicidal ideation, there are no delusions reported or noted, she endorsed auditory and visual hallucinations. Concentration were limited and memory was unreliable but none were formally tested. She is alert and oriented x3. Insight and judgment limited, impulse control limited. Cognition: Patient Appearance: Disheveled/Poor Hygiene Level of Consciousness: Awake and Alert Patient Cognition Impaired: No Ability to Follow Directions: Poor Patient Orientation (long list): Person, Place, Time, Name, Age, Birthday, Day of Month, Day of Week and Year Comprehension Ability: Unable to Comprehend Hallucination Type: None Delusion Description: Not Present Thought Process: Circumstantial and Disorganized Affect: Affect Description: Appropriate Behavior: Patient Behavior: Appropriate Speech Pattern: Appropriate and Clear Vitals/I&O/Wt Last Vital Signs Temp 98.8 F 01/28/21 14:00 Pulse 86 12/17/21 14:00 Resp 16 01/29/21 06:00 BP 96/63 01/28/21 14:00 Pulse Ox 98 01/28/21 14:00 Data NPU : 01/21/21 12:24 01/21/21 12:24 A&P Assessment and plan (1) Suicidal ideation: Status: Acute (2) Methamphetamine dependence: Status: Acute (3) Opiate withdrawal: Status: Acute (4) Opiate dependence: Status: Acute (5) Anxiety: Status: Acute (6) Psychosis: Status: Acute Additional A&P Information (1) Suicidal ideation: (2) Methamphetamine dependence: (3) Opiate withdrawal: (4) Opiate dependence: (5) Anxiety: (6) Psychosis: Additional A&P Information This is a 50-year-old white female with a long history of addiction, anxiety and psychosis who presents in active addiction with intoxication and withdrawal with reports of suicidality. 1. Continue current medication. Continue 8/2 mg of Suboxone TID. Increasae Seroquel 600 mg at bedtime. clonazepam 1 mg twice a day. 2. Continue every 15 minute checks for safety. 3. Encourage individual, group and milieu therapies. 4. Encourage sober living treatment after discharge at the highest level of care to which he is willing to commit. 5. Appreciate psychiatric therapist/dietitian consult will await recommendations and follow as indicated. 6. Patient should be offered paperwork for voluntary treatment tomorrow. Involuntary Hold Information 96 Hour Hold: 96 Hour Involuntary Admission: Yes 96 Hour Hold Ending Time: 16:30 Attestations NPU Medical Necessity Statement*: Inpatient hospitalization is medically necessary and the clinically appropriate intervention at this time. We will initiate medications and make changes as indicated. Coding Level of Care Code Acute Metal Fabricator Helper for Sandra Xavier Diagnoses Suicidal ideation R45.851 Methamphetamine dependence F15.20 Opiate withdrawal F11.23 Opiate dependence F11.20 Anxiety F41.9 Psychosis F29
[2021-01-29] MEDS: escitalopram 10 mg Tablet PO (13:00)
[2021-01-29 14:00] VITALS: BP 126/77; PULSE 99; RESP 20; TEMP 36.6; O2SAT 99
[2021-01-29] MEDS: hyDROXYzine 25 mg Capsule 50 MG PO (18:00)
--- NOTE | 2021-01-29 18:03 | PC.NURSE ---
patient complaining of restless legs. vistaril 50 mg given PO. will continue to monitor.
[2021-01-29] MEDS: OLANZapine 5 mg ODT PO (20:08)
[2021-01-29] MEDS: quetiapine 300 mg Tablet 600 MG PO (20:08)
[2021-01-29 20:35] VITALS: BP 122/79; PULSE 87; RESP 16; O2SAT 96
[2021-01-30] MEDS: buprenorphine-naloxone 4-1 mg Film 2 EACH SUBLINGUAL ×3 (05:50→19:19)
[2021-01-30 06:00] VITALS: BP 122/79; PULSE 87; RESP 16; TEMP 36.6; O2SAT 96; BMI 16.2
--- NOTE | 2021-01-30 07:36 | P.NPUPN_ITS ---
Subjective NPU Subjective: Interval history: She says that the clonazepam 1 mg twice a day has been very helpful for her anxiety and also her restless leg syndrome. She says that his restless legs started getting bad in the afternoon until she takes her sleep medication at bedtime. It lasted for about 5 hours and then the restless leg syndrome comes back mildly. She says that she slept very well last night with the Seroquel 600 mg and clonazepam 1 mg. Her restless leg did not bother her at night. Mental Status Exam MSE Comments: This is a thin/cachectic looking white female in hospital scrub s, disheveled multicolored hair with good eye contact. Significant psychomotor agitation. cooperative with exam in moderate distress. Speech was more spontaneous with less times of increased rate and volume. Mood described as anxious, affect congruent. Thought process organized. Thought content: Patient denied suicidal or homicidal ideation, there are no delusions reported or noted, she endorsed auditory and visual hallucinations. Concentration were limited and memory was unreliable but none were formally tested. She is alert and oriented x3. Insight and judgment limited, impulse control limited. Cognition: Patient Appearance: Disheveled/Poor Hygiene Level of Consciousness: Awake and Alert Patient Cognition Impaired: No Ability to Follow Directions: Poor Patient Orientation (long list): Person, Place, Time, Name, Age, Birthday, Day of Month, Day of Week and Year Comprehension Ability: Unable to Comprehend Hallucination Type: None Delusion Description: Not Present Thought Process: Circumstantial and Disorganized Behavior: Patient Behavior: Appropriate Speech Pattern: Clear Vitals/I&O/Wt Last Vital Signs Temp 97.8 F 01/30/21 06:00 Pulse 87 01/30/21 06:00 Resp 16 01/30/21 06:00 BP 122/79 01/30/21 06:00 Pulse Ox 96 01/30/21 06:00 Weight last 48 hrs Weight 44.452 kg Data NPU : 01/21/21 12:24 01/21/21 12:24 A&P Assessment and plan (1) Suicidal ideation: Status: Acute (2) Methamphetamine dependence: Status: Acute (3) Opiate withdrawal: Status: Acute (4) Opiate dependence: Status: Acute (5) Anxiety: Status: Acute (6) Psychosis: Status: Acute Additional A&P Information (1) Suicidal ideation: (2) Methamphetamine dependence: (3) Opiate withdrawal: (4) Opiate dependence: (5) Anxiety: (6) Psychosis: Additional A&P Information This is a 50-year-old white female with a long history of addiction, anxiety and psychosis who presents in active addiction with intoxication and withdrawal with reports of suicidality. 1. Continue current medication. Continue 8/2 mg of Suboxone TID. Seroquel 600 mg at bedtime. Increase clonazepam 1 mg twice a day and 0.5 mg at 1300. Lexapro 10 mg every morning 2. Continue every 15 minute checks for safety. 3. Encourage individual, group and milieu therapies. 4. Encourage sober living treatment after discharge at the highest level of care to which he is willing to commit. 5. Appreciate lighting specialist/dietitian consult will await recommendations and follow as indicated. 6. Patient should be offered paperwork for voluntary treatment tomorrow. Involuntary Hold Information 96 Hour Hold: 96 Hour Involuntary Admission: Yes 96 Hour Hold Ending Time: 16:30 Attestations NPU Medical Necessity Statement*: Inpatient hospitalization is medically necessary and the clinically appropriate intervention at this time. We will initiate me dications and make changes as indicated. Coding Level of Care Code Acute Precision Farming Specialist for Sandra Xavier Diagnoses Suicidal ideation R45.851 Methamphetamine dependence F15.20 Opiate withdrawal F11.23 Opiate dependence F11.20 Anxiety F41.9 Psychosis F29
[2021-01-30] MEDS: CLONazepam 1 mg Tablet PO ×2 (09:12→22:22)
[2021-01-30] MEDS: escitalopram 10 mg Tablet PO (09:12)
[2021-01-30] MEDS: nicotine 2 mg Gum BUCCAL ×3 (09:12→19:19)
[2021-01-30] MEDS: CLONazepam 0.5 mg Tablet PO (12:58)
[2021-01-30 13:56] VITALS: BP 96/61; PULSE 91; RESP 16; TEMP 36.3; O2SAT 99
[2021-01-30 22:00] VITALS: BP 112/68; PULSE 75; RESP 18; TEMP 36.7; O2SAT 99
[2021-01-30] MEDS: quetiapine 300 mg Tablet 600 MG PO (22:22)
[2021-01-31] MEDS: buprenorphine-naloxone 4-1 mg Film 2 EACH SUBLINGUAL ×3 (05:51→21:14)
[2021-01-31 06:00] VITALS: BP 92/41; PULSE 78; RESP 15; O2SAT 99
[2021-01-31] MEDS: CLONazepam 1 mg Tablet PO ×2 (08:56→21:14)
[2021-01-31] MEDS: nicotine 2 mg Gum BUCCAL ×4 (08:57→19:30)
[2021-01-31] MEDS: escitalopram 10 mg Tablet PO (08:57)
--- NOTE | 2021-01-31 10:02 | W.PM.NPUPNS ---
Subjective NPU Subjective: Interval history: She says that she slept fairly well last night. She had several bad dreams like she usually does. She says even in the day she will have bad dreams and be screaming and the nursing staff will need to come in and check on her. Her anxiety and restless leg syndrome are significantly better with the clonazepam. She still has a lot of anxiety. She has been on the Lexapro 10 mg daily for 3 days. Will increase to 20 mg tomorrow. I was hoping to add some Vivactil for her nightmares but that is nonformulary. She said that she has been on prazosin before but it did not work. Mental Status Exam MSE Comments: This is a thin/cachectic looking white female in hospital scrubs, disheveled multicolored hair with good eye contact. Significant psychomotor agitation. cooperative with exam in moderate distress. Speech was more spontaneous with less times of increased rate and volume. Mood described as anxious, affect congruent. Thought process organized. Thought content: Patient denied suicidal or homicidal ideation, there are no delusions reported or noted, she endorsed auditory and visual hallucinations. Concentration were limited and memory was unreliable but none were formally tested. She is alert and oriented x3. Insight and judgment limited, impulse control limited. Cognition: Patient Appearance: Disheveled/Poor Hygiene Level of Consciousness: Awake and Alert Patient Cognition Impaired: No Ability to Follow Directions: Poor Patient Orientation (long list): Person, Place, Time, Name, Age, Birthday, Day of Month, Day of Week and Year Comprehension Ability: Unable to Comprehend Hallucination Type: None Delusion Description: Not Present Thought Process: Circumstantial and Disorganized Affect: Affect Description: Appropriate Behavior: Patient Behavior: Appropriate Speech Pattern: Appropriate Vitals/I&O/Wt Last Vital Signs Temp 98.1 F 01/30/21 22:00 Pulse 78 01/31/21 06:00 Resp 15 01/31/21 06:00 BP 92/41 01/31/21 06:00 Pulse Ox 99 01/31/21 06:00 Weight last 48 hrs Weight 44.452 kg Data NPU : 01/21/21 12:24 01/21/21 12:24 A&P Assessment and plan (1) Suicidal ideation: Status: Acute (2) Methamphetamine dependence: Status: Acute (3) Opiate withdrawal: Status: Acute (4) Opiate dependence: Status: Acute (5) Anxiety: Status: Acute (6) Psychosis: Status: Acute Additional A&P Information (1) Suicidal ideation: (2) Methamphetamine dependence: (3) Opiate withdrawal: (4) Opiate dependence: (5) Anxiety: (6) Psychosis: Additional A&P Information This is a 50-year-old white female with a long history of addiction, anxiety and psychosis who presents in active addiction with intoxication and withdrawal with reports of suicidality. 1. Continue current medication. Continue 8/2 mg of Suboxone TID. Seroquel 600 mg at bedtime. clonazepam 1 mg twice a day and 0.5 mg at 1300. Increase Lexapro 20 mg every morning 2. Continue every 15 minute checks for safety. 3. Encourage individual, group and milieu therapies. 4. Encourage sober living treatment after discharge at the highest level of care to which he is willing to commit. 5. Appreciate district service manager/dietitian consult will await recommendations and follow as indicated. 6. Patient has signed in voluntarily. Involuntary Hold Information 96 Hour Hold: 96 Hour Involuntary Admission: Yes 96 Hour Hold Ending Time: 16:30 Attestations NPU Medical Necessity Statement*: Inpatient hospitalization is medically necessary and the clinically appropriate intervention at this time. We will initiate medications and make changes as indicated. Coding Level of Care Code Acute Shipping Room Helper for Sandra Xavier Diagnoses Suicidal ideation R45.851 Methamphetamine dependence F15.20 Opiate withdrawal F11.23 Opiate dependence F11.20 Anxiety F41.9 Psychosis F29
--- NOTE | 2021-01-31 10:48 | NPU.GN ---
[facility] Topic:Depression/ Anxiety Jes[place] General Mood of Group: Tiny did not attend group today as she wanted to sleep.
[2021-01-31] MEDS: CLONazepam 0.5 mg Tablet PO (12:18)
[2021-01-31 14:00] VITALS: BP 106/67; PULSE 66; RESP 17; TEMP 36.7; O2SAT 97
[2021-01-31] MEDS: quetiapine 300 mg Tablet 600 MG PO (21:14)
[2021-01-31 22:00] VITALS: BP 97/63; PULSE 82; RESP 16; TEMP 37.1; O2SAT 99
[2021-02-01] MEDS: buprenorphine-naloxone 4-1 mg Film 2 EACH SUBLINGUAL ×3 (05:51→19:32)
[2021-02-01 06:00] VITALS: BP 103/68; PULSE 96; RESP 15; O2SAT 98
[2021-02-01] MEDS: acetaminophen 325 mg Tablet 650 MG PO (06:02)
[2021-02-01] MEDS: nicotine 2 mg Gum BUCCAL ×6 (06:03→17:52)
[2021-02-01] MEDS: CLONazepam 1 mg Tablet PO ×2 (09:07→21:25)
[2021-02-01] MEDS: escitalopram 10 mg Tablet 20 MG PO (09:07)
--- NOTE | 2021-02-01 11:14 | NPU.GN ---
[facility] Topic:Maureen Word Search General Mood of Group: Júnior did attend group and participated. Júnior does not seem mentally stable yet and kept wandering in and out of the group. Hygiene was ok.
--- NOTE | 2021-02-01 12:38 | P.NPUPN_ITS ---
Subjective NPU Subjective: Interval history: She says that she was told by the social work coordinator that they cannot find an RCF that will take her before [place]. That has her very anxious and upset. She wants to go somewhere so she can be around family. Says that she thinks there is a women's retirement but she can go to. He asked about the Vivactil that I told her about yesterday. I did not start it because it was nonformulary. She said that she would like to try it. She is very anxious during the day. We talked about moving the Seroquel to some in the daytime but she does not want to take less during the night. Mental Status Exam MSE Comments: This is a thin/cachectic looking white female in hospital scrubs, disheveled multicolored hair with good eye contact. Significant psychomotor agitation. cooperative with exam in moderate distress. Speech was more spontaneous with less times of increased rate and volume. Mood described as anxious, affect congruent. Thought process organized. Thought content: Patient denied suicidal or homicidal ideation, there are no delusions reported o r noted, she endorsed auditory and visual hallucinations. Concentration were limited and memory was unreliable but none were formally tested. She is alert and oriented x3. Insight and judgment limited, impulse control limited. Cognition: Patient Appearance: Disheveled/Poor Hygiene Level of Consciousness: Awake and Alert Patient Cognition Impaired: No Ability to Follow Directions: Poor Patient Orientation (long list): Person, Place, Time, Name, Age, Birthday, Day of Month, Day of Week and Year Comprehension Ability: Unable to Comprehend Hallucination Type: None Delusion Description: Not Present Thought Process: Circumstantial and Disorganized Affect: Affect Description: Appropriate and Calm Behavior: Patient Behavior: Appropriate and Cooperative Speech Pattern: Appropriate and Clear Vitals/I&O/Wt Last Vital Signs Temp 98.7 F 01/31/21 22:00 Pulse 96 02/01/21 06:00 Resp 15 02/01/21 06:00 BP 103/68 02/01/21 06:00 Pulse Ox 98 02/01/21 06:00 Data NPU : 01/21/21 12:24 01/21/21 12:24 A&P Assessment and plan (1) Suicidal ideation: Status: Acute (2) Methamphetamine dependence: Status: Acute (3) Opiate withdrawal: Status: Acute (4) Opiate dependence: Status: Acute (5) Anxiety: Status: Acute (6) Psychosis: Status: Acute Additional A&P Information (1) Suicidal ideation: (2) Methamphetamine dependence: (3) Opiate withdrawal: (4) Opiate dependence: (5) Anxiety: (6) Psychosis: Additional A&P Information This is a 50-year-old white female with a long history of addiction, anxiety and psychosis who presents in active addiction with intoxication and withdrawal with reports of suicidality. 1. Continue current medication. Continue 8/2 mg of Suboxone TID. Seroquel 600 mg at bedtime. clonazepam 1 mg twice a day and 0.5 mg at 1300. Lexapro 20 mg every morning. Vyvactyl 10 mg QHS 2. Continue every 15 minute checks for safety. 3. Encourage individual, group and milieu therapies. 4. Encourage sober living treatment after discharge at the highest level of care to which he is willing to commit. 5. Appreciate building custodial supervisor/dietitian consult will await recommendations and follow as indicated. 6. Patient has signed in voluntarily. Involuntary Hold Information 96 Hour Hold: 96 Hour Involuntary Admission: Yes 96 Hour Hold Ending Time: 16:30 Attestations NPU Medical Necessity Statement*: Inpatient hospitalization is medically necessary and the clinically appropriate intervention at this time. We will initiate medications and make changes as indicated. Coding Level of Care Code Acute Harness Worker for Sandra Xavier Diagnoses Suicidal ideation R45.851 Methamphetamine dependence F15.20 Opiate withdrawal F11.23 Opiate dependence F11.20 Anxiety F41.9 Psychosis F29
[2021-02-01] MEDS: CLONazepam 0.5 mg Tablet PO (13:12)
[2021-02-01 13:39] VITALS: BP 108/69; PULSE 98; RESP 20; TEMP 36.6; O2SAT 94
[2021-02-01] MEDS: hyDROXYzine 25 mg Capsule 50 MG PO (18:21)
[2021-02-01] MEDS: OLANZapine 5 mg ODT PO (18:21)
[2021-02-01 20:03] VITALS: RESP 18
[2021-02-01] MEDS: quetiapine 300 mg Tablet 600 MG PO (21:26)
[2021-02-02] MEDS: buprenorphine-naloxone 4-1 mg Film 2 EACH SUBLINGUAL ×3 (05:42→18:53)
[2021-02-02 06:00] VITALS: RESP 16
[2021-02-02] MEDS: escitalopram 10 mg Tablet 20 MG PO (09:48)
[2021-02-02] MEDS: CLONazepam 1 mg Tablet PO ×2 (09:49→21:06)
[2021-02-02] MEDS: nicotine 2 mg Gum BUCCAL ×2 (10:06→12:35)
--- NOTE | 2021-02-02 10:37 | NPU.GN ---
[facility] Topic:Crisis Plan, Triggers, Coping Mechanisms. General Mood of Group: Tiny did not attend group today. Tiny was sleeping.
[2021-02-02] MEDS: CLONazepam 0.5 mg Tablet PO (12:10)
--- NOTE | 2021-02-02 12:21 | W.PM.NPUPNS ---
Subjective NPU Subjective: Interval history: She continues to have a lot of anxiety. She is very worried about where she will go. She did take the protriptyline for the first time last night and she says that she did not have any nightmares or dreams at all. She was happy about that. We discussed lithium yesterday and she said that she locked up when she took it previously. She says it could have been something else that she was taking. She was agreeable to trying it again. She continues to have a lot of anxiety. Mental Status Exam MSE Comments: This is a thin/cachectic looking white female in hospital scrubs, disheveled multicolored hair with good eye contact. Significant psychomotor agitation. When I observed her from outside of the room her legs were both moving at 12:15. cooperative with exam in moderate distress. Speech was more spontaneous with less times of increased rate and volume. Mood described as anxious, affect congruent. Thought process organized. Thought content: Patient denied suicidal or homicidal ideation, there are no delusions reported or noted, she endorsed auditory and visual hallucinations. Concentration were limited and memory was unreliable but none were formally tested. She is alert and oriented x3. Insight and judgment limited, impulse control limited. Cognition: Patient Appearance: Disheveled/Poor Hygiene Level of Consciousness: Awake and Alert Patient Cognition Impaired: No Ability to Follow Directions: Poor Patient Orientation (long list): Person, Place, Time, Name, Age, Birthday, Day of Month, Day of Week and Year Comprehension Ability: Unable to Comprehend Hallucination Type: None Delusion Description: Not Present Thought Process: Circumstantial and Disorganized Affect: Affect Description: Appropriate Behavior: Patient Behavior: Appropriate Speech Pattern: Appropriate Vitals/I&O/Wt Last Vital Signs Temp 98 F 02/01/21 13:39 Pulse 98 02/01/21 13:39 Resp 16 02/02/21 06:00 BP 108/69 02/01/21 13:39 Pulse Ox 94 02/01/21 13:39 Data NPU : 01/21/21 12:24 01/21/21 12:24 A&P Assessment and plan (1) Suicidal ideation: Status: Acute (2) Methamphetamine dependence: Status: Acute (3) Opiate withdrawal: Status: Acute (4) Opiate dependence: Status: Acute (5) Anxiety: Status: Acute (6) Psychosis: Status: Acute Additional A&P Information (1) Suicidal ideation: (2) Methamphetamine dependence: (3) Opiate withdrawal: (4) Opiate dependence: (5) Anxiety: (6) Psychosis: Additional A&P Information This is a 50-year-old white female with a long history of addiction, anxiety and psychosis who presents in active addiction with intoxication and withdrawal with reports of suicidality. 1. Continue current medication. Continue 8/2 mg of Suboxone TID. Seroquel 600 mg at bedtime. clonazepam 1 mg twice a day and 0.5 mg at 1300. Lexapro 20 mg every morning. Vyvactyl 10 mg QHS. We will add lithium 300 mg twice a day. 2. Continue every 15 minute checks for safety. 3. Encourage individual, group and milieu therapies. 4. Encourage sober living treatment after discharge at the highest level of care to which he is willing to commit. 5. Appreciate insights analyst/dietitian consult will await recommendations and follow as indicated. 6. Patient has signed in voluntarily. Involuntary Hold Information 96 Hour Hold: 96 Hour Involuntary Admission: Yes 96 Hour Hold Ending Time: 16:30 Attestations NPU Medical Necessity Statement*: Inpatient hospitalization is medically necessary and the clinically appropriate intervention at this time. We will initiate medications and make changes as indicated. Coding Level of Care Code Acute Produce Field Merchandiser for Sandra Xavier Diagnoses Suicidal ideation R45.851 Methamphetamine dependence F15.20 Opiate withdrawal F11.23 Opiate dependence F11.20 Anxiety F41.9 Psychosis F29
[2021-02-02 14:00] VITALS: BP 100/52; PULSE 76; RESP 18; TEMP 36.6; O2SAT 99
[2021-02-02] MEDS: lithium carbonate 300 mg Capsule PO (18:53)
[2021-02-02 20:17] VITALS: RESP 16
[2021-02-02] MEDS: quetiapine 300 mg Tablet 600 MG PO (21:06)
[2021-02-03 06:00] VITALS: RESP 17
[2021-02-03] MEDS: buprenorphine-naloxone 4-1 mg Film 2 EACH SUBLINGUAL ×3 (06:09→20:32)
[2021-02-03] MEDS: lithium carbonate 300 mg Capsule PO ×2 (09:15→20:23)
[2021-02-03] MEDS: CLONazepam 1 mg Tablet PO ×2 (09:15→20:23)
[2021-02-03] MEDS: escitalopram 10 mg Tablet 20 MG PO (09:15)
[2021-02-03] MEDS: nicotine 2 mg Gum BUCCAL ×4 (09:15→20:22)
--- NOTE | 2021-02-03 12:55 | NPU.GN ---
[facility] Topic:Maureen Activities General Mood of Group Tiny did not attend or participate in group today she was sleeping.
--- NOTE | 2021-02-03 13:17 | P.NPUPN_ITS ---
Subjective NPU Subjective: Interval history: He needs to be very anxious and complains of waking up through the night. She said that she had 2 nightmares last night which is her normal. She thinks that the lithium is making her shaky and more anxious.. She is only had 2 doses. She wants to leave and go to a women's correction. But the social workers feel that if she goes to a woman's correction like that she will get kicked out fairly quickly. She reluctantly agreed to continue with a trial of lithium. Mental Status Exam MSE Comments: This is a thin/cachectic looking white female in hospital scr ubs, disheveled multicolored hair with good eye contact. Significant psychomotor agitation. cooperative with exam in moderate distress. Speech was more spontaneous with less times of increased rate and volume. Mood described as anxious, affect congruent. Thought process organized. Thought content: Patient denied suicidal or homicidal ideation, there are no delusions reported or noted, she endorsed auditory and visual hallucinations. Concentration were limited and memory was unreliable but none were formally tested. She is alert and oriented x3. Insight and judgment limited, impulse control limited. Cognition: Patient Appearance: Disheveled/Poor Hygiene Level of Consciousness: Awake and Alert Patient Cognition Impaired: No Ability to Follow Directions: Poor Patient Orientation (long list): Person, Place, Time, Name, Age, Birthday, Day of Month, Day of Week and Year Comprehension Ability: Unable to Comprehend Hallucination Type: Visual Delusion Description: Not Present Thought Process: Appropriate Affect: Affect Description: Calm Behavior: Patient Behavior: Cooperative Speech Pattern: Appropriate and Clear Vitals/I&O/Wt Last Vital Signs Temp 98 F 02/02/21 14:00 Pulse 76 02/02/21 14:00 Resp 17 02/03/21 06:00 BP 100/52 02/02/21 14:00 Pulse Ox 99 02/02/21 14:00 Data NPU : 01/21/21 12:24 01/21/21 12:24 A&P Assessment and plan (1) Suicidal ideation: Status: Acute (2) Methamphetamine dependence: Status: Acute (3) Opiate withdrawal: Status: Acute (4) Opiate dependence: Status: Acute (5) Anxiety: Status: Acute (6) Psychosis: Status: Acute Additional A&P Information (1) Suicidal ideation: (2) Methamphetamine dependence: (3) Opiate withdrawal: (4) Opiate dependence: (5) Anxiety: (6) Psychosis: Additional A&P Information This is a 50-year-old white female with a long history of addiction, anxiety and psychosis who presents in active addiction with intoxication and withdrawal with reports of suicidality. 1. Continue current medication. Continue 8/2 mg of Suboxone TID. Seroquel 600 mg at bedtime. clonazepam 1 mg twice a day and 0.5 mg at 1300. Lexapro 20 mg every morning. Vyvactyl 10 mg QHS. Increase lithium 300 mg 3 times a day tomorrow if she tolerates it. 2. Continue every 15 minute checks for safety. 3. Encourage individual, group and milieu therapies. 4. Encourage sober living treatment after discharge at the highest level of care to which he is willing to commit. 5. Appreciate care tech/dietitian consult will await recommendations and follow as indicated. 6. Patient has signed in voluntarily. Involuntary Hold Information 96 Hour Hold: 96 Hour Involuntary Admission: Yes 96 Hour Hold Ending Time: 16:30 Attestations NPU Medical Necessity Statement*: Inpatient hospitalization is medically necessary and the clinically appropriate intervention at this time. We will initiate medications and make changes as indicated. Coding Level of Care Code Acute Insurance Healthcare Representative for Sandra Xavier Diagnoses Suicidal ideation R45.851 Methamphetamine dependence F15.20 Opiate withdrawal F11.23 Opiate dependence F11.20 Anxiety F41.9 Psychosis F29
[2021-02-03 14:00] VITALS: BP 103/67; PULSE 92; RESP 18; TEMP 36.4; O2SAT 98
[2021-02-03] MEDS: CLONazepam 0.5 mg Tablet PO (14:06)
[2021-02-03] MEDS: acetaminophen 325 mg Tablet 650 MG PO (20:22)
[2021-02-03] MEDS: quetiapine 300 mg Tablet 600 MG PO (20:23)
--- NOTE | 2021-02-03 20:25 | PC.NURSE ---
Vistaril 50 mg administered for anxiety and Trazadone administered for sleep aide.
[2021-02-03 22:00] VITALS: BP 122/79; PULSE 81; RESP 16; TEMP 36.7; O2SAT 98
[2021-02-04 06:00] VITALS: RESP 15
--- NOTE | 2021-02-04 07:09 | W.PM.NPUPNS ---
Subjective NPU Subjective: Interval history: She says that she did not sleep well last night. She was up and down. She had her normal number of nightmares. The protriptyline does not seem to be doing anything. She agreed to increase that to 20 mg. Today will be her first day on lithium 3 times a day. She says that she has not had side effects thus far. She said that her is not doing well and she would like to be with him for [place]. They have had difficulty finding an RCF for her. She needs to be better before she goes to a woman's prison. Mental Status Exam MSE Comments: This is a thin/cachectic looking white female in hospital scrubs, disheveled multicolored hair with good eye contact. Significant psychomotor agitation. cooperative with exam in moderate distress. Speech was more spontaneous with no times of increased rate and volume. Mood described as anxious, affect congruent. Thought process organized. Thought content: Patient denied suicidal or homicidal ideation, there are no delusions reported or noted, she endorsed auditory and visual hallucinations. Concentration and memory seems good but none were formally tested. She is alert and oriented x3. Insight and judgment improved, impulse control fair. Cognition: Patient Appearance: Disheveled/Poor Hygiene Level of Consciousness: Awake and Alert Patient Cognition Impaired: No Ability to Follow Directions: Poor Patient Orientation (long list): Person, Place, Time, Name, Age, Birthday, Day of Month, Day of Week and Year Comprehension Ability: Unable to Comprehend Hallucination Type: Visual Delusion Description: Not Present Thought Process: Appropriate Affect: Affect Description: Calm Behavior: Patient Behavior: Cooperative Speech Pattern: Appropriate and Clear Vitals/I&O/Wt Last Vital Signs Temp 98.0 F 02/03/21 22:00 Pulse 81 02/03/21 22:00 Resp 15 02/04/21 06:00 BP 122/79 02/03/21 22:00 Pulse Ox 98 02/03/21 22:00 Data NPU : 01/21/21 12:24 01/21/21 12:24 A&P Assessment and plan (1) Suicidal ideation: Status: Acute (2) Methamphetamine dependence: Status: Acute (3) Opiate withdrawal: Status: Acute (4) Opiate dependence: Status: Acute (5) Anxiety: Status: Acute (6) Psychosis: Status: Acute Additional A&P Information (1) Suicidal ideation: (2) Methamphetamine dependence: (3) Opiate withdrawal: (4) Opiate dependence: (5) Anxiety: (6) Psychosis: Additional A&P Information This is a 50-year-old white female with a long history of addiction, anxiety and psychosis who presents in active addiction with intoxication and withdrawal with reports of suicidality. 1. Continue current medication. Continue 8/2 mg of Suboxone TID. Seroquel 600 mg at bedtime. clonazepam 1 mg twice a day and 0.5 mg at 1300. Lexapro 20 mg every morning. increase protriptyline 20 mg QHS. Increase lithium 300 mg 3 times a day today. 2. Continue every 15 minute checks for safety. 3. Encourage individual, group and milieu therapies. 4. Encourage sober living treatment after discharge at the highest level of care to which he is willing to commit. 5. Appreciate cotton picker/dietitian consult will await recommendations and follow as indicated. 6. Patient has signed in voluntarily. Involuntary Hold Information 96 Hour Hold: 96 Hour Involuntary Admission: Yes 96 Hour Hold Ending Time: 16:30 Attestations NPU Medical Necessity Statement*: Inpatient hospitalization is medically necessary and the clinically appropriate intervention at this time. We will initiate medications and make changes as indicated. Coding Level of Care Code Acute Customer Service Rep for Sandra Xavier Diagnoses Suicidal ideation R45.851 Methamphetamine dependence F15.20 Opiate withdrawal F11.23 Opiate dependence F11.20 Anxiety F41.9 Psychosis F29
[2021-02-04] MEDS: escitalopram 10 mg Tablet 20 MG PO (08:58)
[2021-02-04] MEDS: nicotine 2 mg Gum BUCCAL ×4 (08:59→19:40)
[2021-02-04] MEDS: buprenorphine-naloxone 4-1 mg Film 2 EACH SUBLINGUAL ×3 (08:59→20:08)
[2021-02-04] MEDS: lithium carbonate 300 mg Capsule PO ×3 (08:59→20:08)
[2021-02-04] MEDS: CLONazepam 1 mg Tablet PO ×2 (08:59→20:07)
[2021-02-04] MEDS: CLONazepam 0.5 mg Tablet PO (12:35)
[2021-02-04 14:00] VITALS: RESP 16
[2021-02-04 19:42] VITALS: BP 110/70; PULSE 91; RESP 18; O2SAT 98
[2021-02-04] MEDS: quetiapine 300 mg Tablet 600 MG PO (20:07)
[2021-02-05] MEDS: acetaminophen 325 mg Tablet 650 MG PO (03:02)
[2021-02-05 06:00] VITALS: BP 102/78; PULSE 82; RESP 18; O2SAT 94
[2021-02-05] MEDS: nicotine 2 mg Gum BUCCAL ×4 (08:43→16:39)
[2021-02-05] MEDS: escitalopram 10 mg Tablet 20 MG PO (08:43)
[2021-02-05] MEDS: CLONazepam 1 mg Tablet PO ×2 (08:43→19:59)
[2021-02-05] MEDS: lithium carbonate 300 mg Capsule PO ×3 (08:43→19:59)
[2021-02-05] MEDS: buprenorphine-naloxone 4-1 mg Film 2 EACH SUBLINGUAL ×3 (08:43→19:58)
--- NOTE | 2021-02-05 09:43 | P.NPUPN_ITS ---
Subjective NPU Subjective: Interval history: This is a bad day for her. Maureen is always bad. She says that her parents always locked her up in a psychiatry hospital for [facility]ureen so that they could have their fun. They also did not take her on trips. They took her siblings on trips but left her at home. I asked where they would leave her but she did not respond. She said that she did not sleep well last night but that was as expected. She still has nightmares despite the protriptyline 20 mg. She thinks that the medications are working but nothing could may help make this day a better day. She assured me that tomorrow would be a much better day. Mental Status Exam MSE Comments: This is a thin/cachectic looking white female in hospital scrubs, disheveled multicolored hair with good eye contact. Significant psychomotor agitation. cooperative with exam in moderate distress. Speech was more spontaneous with no times of increased rate and volume. Mood described as anxious, affect congruent. Thought process organized. Thought content: Patient denied suicidal or homicidal ideation, there are no delusions reported or noted, she denies any auditory hallucinations. She says that she always sees butterflies.. Concentration and memory seems good but none were formally test ed. She is alert and oriented x3. Insight and judgment improved, impulse control fair. Cognition: Patient Appearance: Disheveled/Poor Hygiene Level of Consciousness: Awake and Alert Patient Cognition Impaired: No Ability to Follow Directions: Poor Patient Orientation (long list): Person, Place, Time, Name, Age, Birthday, Day of Month, Day of Week and Year Comprehension Ability: Unable to Comprehend Hallucination Type: None Delusion Description: Not Present Thought Process: Circumstantial Affect: Affect Description: Appropriate and Calm Behavior: Patient Behavior: Appropriate, Cooperative, Irritable and Withdrawn Speech Pattern: Appropriate and Clear Vitals/I&O/Wt Last Vital Signs Temp 98.0 F 02/03/21 22:00 Pulse 82 02/05/21 06:00 Resp 18 02/05/21 06:00 BP 102/78 02/05/21 06:00 Pulse Ox 94 02/05/21 06:00 Data NPU : 01/21/21 12:24 01/21/21 12:24 A&P Assessment and plan (1) Suicidal ideation: Status: Acute (2) Methamphetamine dependence: Status: Acute (3) Opiate withdrawal: Status: Acute (4) Opiate dependence: Status: Acute (5) Anxiety: Status: Acute (6) Psychosis: Status: Acute Additional A&P Information (1) Suicidal ideation: (2) Methamphetamine dependence: (3) Opiate withdrawal: (4) Opiate dependence: (5) Anxiety: (6) Psychosis: Additional A&P Information This is a 50-year-old white female with a long history of addiction, anxiety and psychosis who presents in active addiction with intoxication and withdrawal with reports of suicidality. 1. Continue current medication. Continue 8/2 mg of Suboxone TID. Seroquel 600 mg at bedtime. clonazepam 1 mg twice a day and 0.5 mg at 1300. Lexapro 20 mg every morning. increase protriptyline 20 mg QHS. Increase lithium 300 mg 3 times a day today. 2. Continue every 15 minute checks for safety. 3. Encourage individual, group and milieu therapies. 4. Encourage sober living treatment after discharge at the highest level of care to which he is willing to commit. 5. Appreciate rotary swaging machine operator/dietitian consult will await recommendations and follow as indicated. 6. Patient has signed in voluntarily. Involuntary Hold Information 96 Hour Hold: 96 Hour Involuntary Admission: Yes 96 Hour Hold Ending Time: 16:30 Attestations NPU Medical Necessity Statement*: Inpatient hospitalization is medically necessary and the clinically appropriate intervention at this time. We will initiate medications and make changes as indicated. Coding Level of Care Code Acute Architecture Faculty Member for Sandra Xavier Diagnoses Suicidal ideation R45.851 Methamphetamine dependence F15.20 Opiate withdrawal F11.23 Opiate dependence F11.20 Anxiety F41.9 Psychosis F29
[2021-02-05] MEDS: hyDROXYzine 25 mg Capsule 50 MG PO ×2 (11:28→18:49)
--- NOTE | 2021-02-05 11:30 | PC.NURSE ---
PRN MED PT GIVEN 50MG VISTARIL FOR ANXIETY, WILL CONTINUE TO MONITOR.
[2021-02-05] MEDS: CLONazepam 0.5 mg Tablet PO (12:15)
[2021-02-05 14:00] VITALS: BP 97/60; PULSE 111; RESP 16; O2SAT 98
--- NOTE | 2021-02-05 18:02 | PC.NUTR ---
Nutrition note: 83% average intake X 10 recorded meals since last review, however 8 other meals from same time frame missing from EMR.(01/31/21-02/05/21) If pt did not eat at those meals, average would be 46% X 18 meals, significantly lower intake. Recommend clarification of intakes at missing meals, when possible. See full RD assessment for further details.
--- NOTE | 2021-02-05 18:52 | PC.NURSE ---
PRN MED PT GIVEN 50MG VISTARIL FOR ANXIETY, WILL CONTINUE TO MONITOR.
[2021-02-05] MEDS: quetiapine 300 mg Tablet 600 MG PO (19:59)
[2021-02-05 20:24] VITALS: BP 92/61; PULSE 97; RESP 15; TEMP 36.7; O2SAT 95
[2021-02-06 06:00] VITALS: BP 104/63; PULSE 65; RESP 18; TEMP 36.7; O2SAT 95; BMI 16.2
[2021-02-06] MEDS: nicotine 2 mg Gum BUCCAL ×3 (06:51→15:57)
--- NOTE | 2021-02-06 08:04 | P.NPUPN_ITS ---
Subjective NPU Subjective: Interval history: She had a hard night with several nightmares. She says is just because of the holiday. She feels that she is doing better. She is less jiménez. Her mood is more stable and not all over the place. She feels less anxious overall. She is less depressed overall. Restless leg syndrome bothers her significantly during the day. She feels that the clonazepam helps. She would like to try a small dose of Requip in the morning. She feels like she is ready to leave. She is going to call some women shelters and other places today. Mental Status Exam MSE Comments: This is a thin/cachectic looking white female in hospital scrubs, disheveled multicolored hair with good eye contact. Significant psychomotor agitation but seems a little better today. cooperative with exam in moderate distress. Speech was more spontaneous with no times of increased rate and volume. Mood described as anxious, affect congruent. Thought process organized. Thought content: Patient denied suicidal or homicidal ideation, there are no delusions reported or noted, she denies any auditory hallucinations. She says that she always sees butterflies.. Concentration and memory seems good but none were formally tested. She is alert and oriented x3. Insight and judgment improved, impulse control fair. Cognition: Patient Appearance: Disheveled/Poor Hygiene Level of Consciousness: Awake and Alert Patient Cognition Impaired: No Ability to Follow Directions: Poor Patient Orientation (long list): Person, Place, Time, Name, Age, Birthday, Day of Month, Day of Week and Year Comprehension Ability: Unable to Comprehend Hallucination Type: Visual Delusion Description: Not Present Thought Process: Circumstantial Affect: Affect Description: Appropriate Behavior: Patient Behavior: Appropriate Speech Pattern: Appropriate Vitals/I&O/Wt Last Vital Signs Temp 98.1 F 02/06/21 06:00 Pulse 65 02/06/21 06:00 Resp 18 02/06/21 06:00 BP 104/63 02/06/21 06:00 Pulse Ox 95 02/06/21 06:00 Weight last 48 hrs Weight 44.452 kg Data NPU : 01/21/21 12:24 01/21/21 12:24 A&P Assessment and plan (1) Suicidal ideation: Status: Acute (2) Methamphetamine dependence: Status: Acute (3) Opiate withdrawal: Status: Acute (4) Opiate dependence: Status: Acute (5) Anxiety: Status: Acute (6) Psychosis: Status: Acute Additional A&P Information (1) Suicidal ideation: (2) Methamphetamine dependence: (3) Opiate withdrawal: (4) Opiate dependence: (5) Anxiety: (6) Psychosis: Additional A&P Information This is a 50-year-old white female with a long history of addiction, anxiety and psychosis who presents in active addiction with intoxication and withdrawal with reports of suicidality. 1. Continue current medication. Continue 8/2 mg of Suboxone TID. Seroquel 600 mg at bedtime. clonazepam 1 mg twice a day and 0.5 mg at 1300. Lexapro 20 mg every morning. protriptyline 20 mg QHS. lithium 300 mg 3 times a day. Requip 1 mg in the BID PRN 2. Continue every 15 minute checks for safety. 3. Encourage individual, group and milieu therapies. 4. Encourage sober living treatment after discharge at the highest level of care to which he is willing to commit. 5. Appreciate rib matcher and fitter/dietitian consult will await recommendations and fol low as indicated. 6. Patient has signed in voluntarily. Involuntary Hold Information 96 Hour Hold: 96 Hour Involuntary Admission: Yes 96 Hour Hold Ending Time: 16:30 Attestations NPU Medical Necessity Statement*: Inpatient hospitalization is medically necessary and the clinically appropriate intervention at this time. We will initiate medications and make changes as indicated. Coding Level of Care Code Acute Network Relay Tester for Sandra Xavier Diagnoses Suicidal ideation R45.851 Methamphetamine dependence F15.20 Opiate withdrawal F11.23 Opiate dependence F11.20 Anxiety F41.9 Psychosis F29
[2021-02-06] MEDS: CLONazepam 1 mg Tablet PO ×2 (09:14→19:48)
[2021-02-06] MEDS: lithium carbonate 300 mg Capsule PO ×3 (09:14→19:46)
[2021-02-06] MEDS: ropinirole 1 mg Tablet PO (09:14)
[2021-02-06] MEDS: buprenorphine-naloxone 4-1 mg Film 2 EACH SUBLINGUAL ×3 (09:15→19:49)
[2021-02-06] MEDS: escitalopram 10 mg Tablet 20 MG PO (09:15)
[2021-02-06] MEDS: CLONazepam 0.5 mg Tablet PO (13:16)
[2021-02-06 14:00] VITALS: BP 87/56; PULSE 88; RESP 16; TEMP 36.8; O2SAT 97
[2021-02-06] MEDS: hyDROXYzine 25 mg Capsule 50 MG PO (16:46)
--- NOTE | 2021-02-06 16:48 | PC.NURSE ---
ADMINISTERED VISTARIL 50MG PO FOR PT C/O OF INCREASING ANXIETY.
[2021-02-06 19:44] VITALS: BP 93/49; PULSE 96; RESP 15; TEMP 37.1; O2SAT 98
[2021-02-06] MEDS: quetiapine 300 mg Tablet 600 MG PO (19:46)
[2021-02-07 06:00] VITALS: BP 96/63; PULSE 91; RESP 16; TEMP 36.6; O2SAT 97
[2021-02-07] MEDS: nicotine 2 mg Gum BUCCAL ×2 (06:03→09:32)
--- NOTE | 2021-02-07 07:20 | P.NPUPN_ITS ---
Subjective NPU Subjective: Interval history: She had a much better day yesterday. Her anxiety was so bad. The Requip in the morning helps her restless legs during the day. She still moves her legs at night long. Will try some at night also. She only had 1 small nightmare last night and she said that she was able to stop it. She feels like the lithium has been very helpful. Mental Status Exam MSE Comments: This is a thin/cachectic looking white female in hospital scrubs, disheveled multicolored hair with good eye contact. mild psychomotor agitation. cooperative with exam in mild distress. Speech was more spontaneous with no times of increased rate and volume. Mood described as anxious but better, affect congruent. Thought process organized. Thought content: Patient denied suicidal or homicidal ideation, there are no delusions reported or noted, she denies any auditory hallucinations. She says that she always sees butterflies.. Concentration and memory seems good but none were formally tested. She is alert and oriented x3. Insight and judgment improved, impulse control fair. Cognition: Patient Appearance: Disheveled/Poor Hygiene Level of Consciousness: Awake and Alert Patient Cognition Impaired: No Ability to Follow Directions: Poor Patient Orientation (long list): Person, Place, Time, Name, Age, Birthday, Day of Month, Day of Week and Year Comprehension Ability: Unable to Comprehend Hallucination Type: None Delusion Description: Not Present Thought Process: Circumstantial Affect: Affect Description: Calm Behavior: Patient Behavior: Cooperative Speech Pattern: Clear Vitals/I&O/Wt Last Vital Signs Temp 97.8 F 02/07/21 06:00 Pulse 91 02/07/21 06:00 Resp 16 02/07/21 06:00 BP 96/63 02/07/21 06:00 Pulse Ox 97 02/07/21 06:00 Weight last 48 hrs Weight 44.452 kg Data NPU : 01/21/21 12:24 01/21/21 12:24 A&P Assessment and plan (1) Suicidal ideation: Status: Acute (2) Methamphetamine dependence: Status: Acute (3) Opiate withdrawal: Status: Acute (4) Opiate dependence: Status: Acute (5) Anxiety: Status: Acute (6) Psychosis: Status: Acute Additional A&P Information (1) Suicidal ideation: (2) Methamphetamine dependence: (3) Opiate withdrawal: (4) Opiate dependence: (5) Anxiety: (6) Psychosis: Additional A&P Information This is a 50-year-old white female with a long history of addiction, anxiety and psychosis who presents in active addiction with intoxication and withdrawal with reports of suicidality. 1. Continue current medication. Continue 8/2 mg of Suboxone TID. Seroquel 600 mg at bedtime. clonazepam 1 mg twice a day and 0.5 mg at 1300. Lexapro 20 mg every morning. protriptyline 20 mg QHS. lithium 300 mg 3 times a day. Check level today. Requip 1 mg in the BID PRN 2. Continue every 15 minute checks for safety. 3. Encourage individual, group and milieu therapies. 4. Encourage sober living treatment after discharge at the highest level of care to which he is willing to commit. 5. Appreciate computer game tester/dietitian consult will await recommendations and follow as indicated. 6. Patient has signed in voluntarily. Involuntary Hold Information 96 Hour Hold: 96 Hour Involuntary Admission: Yes 96 Hour Hold Ending Time: 16:30 Attestations NPU Medical Necessity Statement*: Inpatient hospitalization is medically necessary and the clinically appropriate intervention at this time. We will initiate medications and make changes as indicated. Coding Level of Care Code Acute Commissioned Police Officer for Sandra Xavier Diagnoses Suicidal ideation R45.851 Methamphetamine dependence F15.20 Opiate withdrawal F11.23 Opiate dependence F11.20 Anxiety F41.9 Psychosis F29
[2021-02-07] MEDS: buprenorphine-naloxone 4-1 mg Film 2 EACH SUBLINGUAL ×2 (08:18→14:03)
[2021-02-07] MEDS: CLONazepam 1 mg Tablet PO (08:19)
[2021-02-07] MEDS: escitalopram 10 mg Tablet 20 MG PO (08:19)
[2021-02-07] MEDS: lithium carbonate 300 mg Capsule PO ×2 (08:19→14:03)
[2021-02-07] MEDS: ropinirole 1 mg Tablet PO (08:19)
[2021-02-07 08:37] LABS: Lithium 0.8 mmol/L (0.6-1.2)
--- NOTE | 2021-02-07 10:59 | NPU.GN ---
[facility] Group Topic: Ice Breakers General Mood of Group: Tiny did not attend or participate in group today. She was sleeping.
[2021-02-07] MEDS: CLONazepam 0.5 mg Tablet PO (12:25)
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
[2021-02-07 13:40] VITALS: BP 100/63; BP 96/63; PULSE 88; PULSE 91; RESP 16; RESP 17; TEMP 36.6; O2SAT 97; O2SAT 99
[2021-02-07 13:52] VITALS: BP 100/63; PULSE 88; RESP 17; TEMP 36.6; O2SAT 99
--- NOTE | 2021-02-07 15:17 | PC.SOCIAL ---
IMM Update Discussed medicare information with patient, verbalized understanding. Provided patient with a copy and placed initialed, timed, dated copy in patient's chart.
== END 2021-02-07 15:54 | disposition home or self-care (01) | DRG 897 ==
LOC: ER 14:00 → NP 20:40
PROVIDERS: Hospitalist; Psychiatry & Neurology Psychiatry; Admitting Provider Psychiatry & Neurology Psychiatry; Emergency Provider Emergency Medicine; Visit Provider Psychiatry & Neurology Psychiatry
DX: F15.259 Other stimulant dependence with stimulant-induced psychotic disorder, unspecified (principal); R45.851 Suicidal ideations; F15.229 Other stimulant dependence with intoxication, unspecified; F11.23 Opioid dependence with withdrawal; T50.996A Underdosing of other drugs, medicaments and biological substances, initial encounter; F17.210 Nicotine dependence, cigarettes, uncomplicated; F41.9 Anxiety disorder, unspecified; G25.81 Restless legs syndrome
CPT/HCPCS: 36415; 80053; 80178; 80306; 80307; 81025; 82550; 84443; 84484; 85025; 93005; 96361; 96372; 96374; 96375; 96376; 97150; 97165; 99285; J0573; J1200; J2060; J2250; J3486; J3490; J7030; Q0162